=== PATIENT | female | born 1955 | race African-American/Black ===

== ENCOUNTER 2017-03-07 11:52 | Emergency (ER) | payer SELFPAY ==
[~2017-03-07] VITALS: Ht 175.3 cm; Wt 66.8 kg
[2017-03-07] MEDS ORDERED: TIMO5OPG OD (12:26)
[2017-03-07] MEDS ORDERED: METF500T13 PO (12:26)
[2017-03-07] MEDS ORDERED: FLUTISP (12:26)
[2017-03-07] MEDS ORDERED: VITA100067 PO (12:26)
[2017-03-07] MEDS ORDERED: SERT-138 PO (12:26)
[2017-03-07] MEDS ORDERED: INDO25CA PO (12:26)
[2017-03-07] MEDS ORDERED: POTA75TA PO (12:26)
[2017-03-07] MEDS ORDERED: ATOR1TAB21 PO (12:26)
[2017-03-07] MEDS ORDERED: AMLO5TAB2 PO (12:26)
[2017-03-07] MEDS ORDERED: PROBCAP4 PO (12:26)
[2017-03-07] MEDS ORDERED: vitamin b 12 (12:26)
[2017-03-07] MEDS ORDERED: GABA-282 PO (12:26)
[2017-03-07] MEDS ORDERED: MULT1CHW39 PO (12:26)
[2017-03-07] MEDS ORDERED: BENZ100C5 PO (12:26)
[2017-03-07] MEDS ORDERED: ZOFR20TA PO (12:26)
[2017-03-07] MEDS ORDERED: OMEP40CA2 PO (12:26)
[2017-03-07] MEDS ORDERED: GINK30CA PO (12:26)
[2017-03-07] MEDS ORDERED: XALA0.007 OU (12:26)
[2017-03-07] MEDS ORDERED: FOLI800C PO (12:26)
[2017-03-07] MEDS ORDERED: ST J150C2 PO (12:26)
[2017-03-07 15:14] VITALS: BP 162/94
== END 2017-03-07 15:32 | disposition home or self-care (01) ==
LOC: M ED 11:52
DX: F32.9 Major depressive disorder, single episode, unspecified (principal); E11.9 Type 2 diabetes mellitus without complications; I10 Essential (primary) hypertension; F41.9 Anxiety disorder, unspecified; F17.200 Nicotine dependence, unspecified, uncomplicated; F12.10 Cannabis abuse, uncomplicated; Z79.899 Other long term (current) drug therapy